=== PATIENT | female | born 2000 | race Caucasian/White ===

== ENCOUNTER 2021-02-17 11:30 | Outpatient (RCR) | payer OTHER, SELFPAY ==
--- NOTE | 2021-02-01 11:56 | HP.PTEVAL_ITS ---
Patient's Visit Information SHIRLEY SAVAGE is a 20 year old F referred to Physical Therapy by AUSTIN JANG with a diagnosis of displaced fx of lateral condyle of L humerus with fixation. Date of Evaluation: 02/01/21 Physical Therapist: Helio Cintron DPT - Visit Plan Frequency: 2x /Week Duration: 6 Weeks Plan: Start with hand therapy, elbow PROM and stretching as tolerated. Pt. was given HEP for passive stretching, with focus on low load long duration stretchi ng. Pt. is concerned about getting to PT. She is hoping to complete telehealth at this point in time. I talked with her that I am okay with this, but she will need to be very diligent with stretching independently. Pt. consents. I also talked with her that if she is not progressing as expected we will need to see her in person to aide with stretching. Pt. again consents. - Subjective Pt. is here today for her initial evaluation with diagnosis of displaced fx of lateral condyle of L humerus with fixation. Pt. reports falling while walking down her stairs at home. DOS: January. Pt. reports recently being able to get out of sling for periods of time, but is still wearing most of the time. She is a college student at [employer]. She is studying writing and is also involved in marching [employer]. She reports not doing any exercises yet, but has been trying to use her hand a little bit with school activities. She is limited to NON Wt. bearing through her elbow and is able to lift a tea cup worth of wt. Pt. has been limiting her self well with these precautions. She has tried playing her instrument, but not holding. She reports being limited to ~30 min at a time. She denies N/T in her LUE, she is having no pain at rest, but has some mild pain with attempts of straightening her elbow. Pt. is not currently driving. She is hopeful to increase her ROM in her elbow and get back to all recreational and band activities without limitations. - Pain L elbow Pain Intensity (Out of 10): 1 Pain Intensity Range: 0, 5 Comment: increased pain with straightening her elbow - Objective POSTURE: Pt. tends to keep her L UE in guarded posture at side. Pt. has normal shoulder heights, but is very rigid with her LUE. PALPATION: pt. has well healing incision without issues, no signs of infection. She does have some mild non pitting edema throughout elbow region, no distal edema. No erythema or heat noted. NEURO: Pt. has normal biceps DTR in BUEs. Pt. has normal sensation noted throughout BUEs. ROM: R elbow full without issues, R shoulder normal ROM. L wrist: flex/ext normal no issues noted. ELBOW: sup 55deg, PRO 90deg, flexion 110deg, extension: lacking 40deg (limited by pain). L shoulder: flexion 150deg, abd 150deg, ER at 90deg 60deg, IR at 90deg 50deg. MMT: did not test this date due to surgical time frame. - Balance/Special Test Scores Quick DASH Score: 25.0000 - Goals Goal 1:: LTG: Pt. to be I with HEP. Goal Time Frame: 2-4 Weeks Goal 2:: LTG: Pt. to have increased L elbow ROM to full (sup 90deg, pro 90deg, flexion 135deg, ext 0deg.) without increase in symptoms. Goal Time Frame: 2-4 Weeks Goal 3:: STG: Pt. to sleep without increase in symptoms. Goal Time Frame: 2-4 Weeks Goal 4:: LTG: Pt. to have increased strength of LUE to 5/5 throughout without increase in symptoms. Goal Time Frame: 6-8 Weeks Goal 5:: LTG: Pt. to resume all band and school related activities without increase in symptoms. Goal Time Frame: 6-8 Weeks - Rehabilitation Potential Physical Therapy Diagnosis: Pt. has signs and symptoms consistent with displaced fx of lateral condyle of L humerus with fixation. Pt. has subsequent hypomobility, pain, limited functional use, and presumed weakness (unable to test this date). Pt. would benefit from PT to progress PROM currently, eventually strength and functional mobility pending physician approval. Rehabilitation Potential: Excellent - Anticipated Interventions Patient/Client Instruction: Educate patient on: Condition, Plan of Care, Risk Factors, Benefits of Fitness Program For the Purpose of:: To foster healthy habits, To improve decision making, To facilitate caregiver knowledge, To improve self management, To prevent re- injury, To improve ability to perform tasks related to life management Therapeutic Exercise to Include: Strength training, Power training, Coordination, Postural training, Flexibilty training, Passive ROM, Active ROM For the Purpose of:: To decrease pain, To decrease swelling/inflammation, To increase ROM, To improve health of tissue, To decrease soft tissue restriction, To increase flexibility/ROM Manual Therapy Techniques to Include: Mobilization, Passive ROM, Soft tissue mobilization For the Purpose of:: To decrease pain, To decrease swelling/inflammation, To increase ROM, To improve nutrient delivery to tissue, To increase oxygenation perfusion, To improve health of tissue, To decrease soft tissue restriction, To increase flexibility/ROM Thank you for the opportunity to evaluate your patient. For Medicare and Medicare HMO plans, please review the plan of care and approve it. It will need to be FAXED BACK to us at [phone] for Medicare purposes. For Medicare only, by signing this I certify the plan of care. Please let me know if there are questions or concerns regarding this plan of care. Physician Signature: Dat e:
--- NOTE | 2021-05-03 13:11 | HP.PTDCNRP_ITS ---
SHIRLEY SAVAGE was seen in my office for initial evaluation on 02/01/21. The following Plan of Care was established for this patient: Initial Frequency: 2x /Week Initial Duration: 6 Weeks Patient/Client Instruction: Educate patient on: Condition, Plan of Care, Risk Factors, Benefits of Fitness Program For the Purpose of:: To foster healthy habits, To improve decision making, To facilitate caregiver knowledge, To improve self management, To prevent re- injury, To improve ability to perform tasks related to life management Therapeutic Exercise to Include: Strength training, Power training, Coordination, Postural training, Flexibilty training, Passive ROM, Active ROM For the Purpose of:: To decrease pain, To decrease swelling/inflammation, To increase ROM, To improve health of tissue, To decrease soft tissue restriction, To increase flexibility/ROM Manual Therapy Techniques to Include: Mobilization, Passive ROM, Soft tissue mobilization For the Purpose of:: To decrease pain, To decrease swelling/inflammation, To increase ROM, To improve nutrient delivery to tissue, To increase oxygenation perfusion, To improve health of tissue, To decrease soft tissue restriction, To increase flexibility/ROM This patient was last seen in our office 02/17/21. Pertinent comments regarding their Physical therapy will appear below: Pt. was seen for her elbow ORIF. She has not been seen in several months and will be DC from PT at this point in time. At this point I will be discontinuing this patient from physical therapy. I would be happy to see this patient again in the future if found appropriate by the physician. Thank you! Helio Cintron, DPT Balance/Gait/Functional tests - Balance/Special Test Scores Quick DASH Score: 25.0000
== END 2021-02-17 19:00 | disposition home or self-care (01) ==
LOC: PT 11:30
DX: S42.452D Displaced fracture of lateral condyle of left humerus, subsequent encounter for fracture with routine healing (principal); X58.XXXD Exposure to other specified factors, subsequent encounter
CPT/HCPCS: 97110; 97161